=== PATIENT | female | born 1960 | race Caucasian/White ===

== ENCOUNTER 2020-06-16 08:07 | Day surgery (SDC) | payer MEDICAID ==
[~2020-06-16] VITALS: Ht 172.7 cm; Wt 69.8 kg
[2020-06-16 08:30] VITALS: BP 143/82
[2020-06-16] MEDS ORDERED: albumin 25% 100mL bottle x 1 IV PRN (08:30)
[2020-06-16] MEDS ORDERED: normal saline 1000ml 1,000 ML IV PRN (08:30)
[2020-06-16] MEDS ORDERED: FLO0.1T PO (08:32)
[2020-06-16] MEDS ORDERED: MIDO2.5T14 PO (08:32)
[2020-06-16] MEDS ORDERED: FLO0.4C PO (08:32)
[2020-06-16 08:45] VITALS: BP 134/82
[2020-06-16 09:00] VITALS: BP 114/71
[2020-06-16 09:15] VITALS: BP 139/46
== END 2020-06-16 09:30 | disposition home or self-care (01) ==
LOC: SSTAY O 08:07
PROVIDERS: ATTEND Radiology Vascular & Interventional Radiology
DX: K70.31 Alcoholic cirrhosis of liver with ascites (principal); F10.20 Alcohol dependence, uncomplicated; E87.1 Hypo-osmolality and hyponatremia; D75.89 Other specified diseases of blood and blood-forming organs; Z98.890 Other specified postprocedural states
CPT/HCPCS: 49083

== ENCOUNTER 2020-06-23 07:02 | Day surgery (SDC) | payer MEDICAID ==
[2020-06-23] VITALS (9 sets, daily range): BP systolic 107–137; BP diastolic 47–66
[~2020-06-23] VITALS: Ht 172.7 cm; Wt 66.7 kg
[~2020-06-23 07:02] MED LIST: FLO0.1T PO; FLO0.4C PO; MIDO2.5T14 PO
[2020-06-23] MEDS ORDERED: albumin 25% 100mL bottle x 1 IV PRN (07:20)
[2020-06-23] MEDS ORDERED: normal saline 1000ml 1,000 ML IV PRN (07:25)
== END 2020-06-23 10:50 | disposition home or self-care (01) ==
LOC: SSTAY O 07:02
PROVIDERS: ATTEND Radiology Vascular & Interventional Radiology
DX: K70.31 Alcoholic cirrhosis of liver with ascites (principal); Z98.890 Other specified postprocedural states; Z87.891 Personal history of nicotine dependence; Z72.89 Other problems related to lifestyle
CPT/HCPCS: 49083; P9047

== ENCOUNTER 2020-06-30 06:22 | Day surgery (SDC) | payer MEDICAID ==
[~2020-06-30] VITALS: Ht 172.7 cm; Wt 62.0 kg
[2020-06-30] VITALS (8 sets, daily range): BP systolic 92–117; BP diastolic 61–69
[2020-06-30] MEDS ORDERED: albumin 25% 100mL bottle x 1 IV PRN (06:45)
== END 2020-06-30 09:35 | disposition home or self-care (01) ==
LOC: SSTAY O 06:22
PROVIDERS: ATTEND Radiology Diagnostic Radiology
DX: K70.31 Alcoholic cirrhosis of liver with ascites (principal); E87.1 Hypo-osmolality and hyponatremia; D75.89 Other specified diseases of blood and blood-forming organs; I95.9 Hypotension, unspecified; Z87.891 Personal history of nicotine dependence; Z98.890 Other specified postprocedural states
CPT/HCPCS: 49083; P9047

== ENCOUNTER 2020-07-10 07:27 | Day surgery (SDC) | payer MEDICAID ==
[2020-07-10] VITALS (8 sets, daily range): BP systolic 91–109; BP diastolic 53–79
[~2020-07-10] VITALS: Ht 172.7 cm; Wt 58.4 kg
[2020-07-10] MEDS ORDERED: albumin 25% 100mL bottle x 1 IV PRN (07:50)
== END 2020-07-10 10:35 | disposition home or self-care (01) ==
LOC: SSTAY O 07:27
PROVIDERS: ATTEND Radiology Vascular & Interventional Radiology
DX: K70.31 Alcoholic cirrhosis of liver with ascites (principal); E87.1 Hypo-osmolality and hyponatremia; D75.89 Other specified diseases of blood and blood-forming organs; Z98.890 Other specified postprocedural states; Z87.891 Personal history of nicotine dependence; Z72.89 Other problems related to lifestyle
CPT/HCPCS: 49083; P9047

== ENCOUNTER → 2020-07-17 | Day surgery (SDC) | payer MEDICAID ==
[2020-07-17] VITALS (8 sets, daily range): BP systolic 91–118; BP diastolic 55–69
[~2020-07-17] VITALS: Ht 172.7 cm; Wt 57.9 kg
[~2020-07-17] MED LIST changes: +albumin 25% 100mL bottle x 1 IV PRN
== END | disposition home or self-care (01) ==
LOC: SSTAY O 07:49
PROVIDERS: ATTEND Radiology Vascular & Interventional Radiology
DX: K70.31 Alcoholic cirrhosis of liver with ascites (principal); E87.1 Hypo-osmolality and hyponatremia; D75.89 Other specified diseases of blood and blood-forming organs; Z98.890 Other specified postprocedural states; Z87.891 Personal history of nicotine dependence; Z72.89 Other problems related to lifestyle
CPT/HCPCS: 49083; P9047

== ENCOUNTER 2020-07-24 07:50 | Day surgery (SDC) | payer MEDICAID ==
[~2020-07-24] VITALS: Ht 172.7 cm; Wt 57.1 kg
[2020-07-24] VITALS (8 sets, daily range): BP systolic 80–106; BP diastolic 29–69
[~2020-07-24 07:50] MED LIST changes: -albumin 25% 100mL bottle x 1 IV PRN
[2020-07-24] MEDS ORDERED: albumin 25% 100mL bottle x 1 IV PRN (08:30)
== END 2020-07-24 11:05 | disposition home or self-care (01) ==
LOC: SSTAY O 07:50
PROVIDERS: ATTEND Radiology Diagnostic Radiology
DX: K70.31 Alcoholic cirrhosis of liver with ascites (principal); E87.1 Hypo-osmolality and hyponatremia; D75.89 Other specified diseases of blood and blood-forming organs; Z98.890 Other specified postprocedural states; Z87.891 Personal history of nicotine dependence; Z72.89 Other problems related to lifestyle; Z79.899 Other long term (current) drug therapy
CPT/HCPCS: 49083; P9047

== ENCOUNTER 2020-07-31 07:23 | Day surgery (SDC) | payer MEDICAID ==
[2020-07-31] VITALS (8 sets, daily range): BP systolic 87–165; BP diastolic 55–76
[~2020-07-31] VITALS: Ht 172.7 cm; Wt 57.0 kg
[2020-07-31] MEDS ORDERED: normal saline 1000ml 1,000 ML IV PRN (07:45)
[2020-07-31] MEDS ORDERED: albumin 25% 100mL bottle x 1 IV PRN (07:45)
== END 2020-07-31 10:40 | disposition home or self-care (01) ==
LOC: SSTAY O 07:23
PROVIDERS: ATTEND Radiology Vascular & Interventional Radiology
DX: K70.31 Alcoholic cirrhosis of liver with ascites (principal); Z79.899 Other long term (current) drug therapy
CPT/HCPCS: 49083; P9047

== ENCOUNTER 2020-08-07 07:30 | Day surgery (SDC) | payer MEDICAID ==
[~2020-08-07] VITALS: Ht 167.6 cm; Wt 57.9 kg
[2020-08-07 07:54] VITALS: BP 117/75
[2020-08-07] MEDS ORDERED: albumin 25% 100mL bottle x 1 IV PRN (07:55)
[2020-08-07 09:45] VITALS: BP 109/72
[2020-08-07 10:00] VITALS: BP 102/63
[2020-08-07 10:15] VITALS: BP 107/68
== END 2020-08-07 10:25 | disposition home or self-care (01) ==
LOC: SSTAY O 07:30
PROVIDERS: ATTEND Radiology Vascular & Interventional Radiology
DX: K70.31 Alcoholic cirrhosis of liver with ascites (principal); E87.1 Hypo-osmolality and hyponatremia; D75.89 Other specified diseases of blood and blood-forming organs; Z79.899 Other long term (current) drug therapy; Z87.891 Personal history of nicotine dependence; Z98.890 Other specified postprocedural states
CPT/HCPCS: 49083

== ENCOUNTER 2020-08-14 07:25 | Day surgery (SDC) | payer MEDICAID ==
[~2020-08-14] VITALS: Ht 172.7 cm; Wt 58.3 kg
[2020-08-14] MEDS ORDERED: albumin 25% 100mL bottle x 1 IV PRN (07:45)
[2020-08-14] MEDS ORDERED: normal saline 1000ml 1,000 ML IV PRN (07:45)
[2020-08-14 08:20] VITALS: BP 120/74
[2020-08-14 09:30] VITALS: BP_SYST 117; BP_SYST 120; BP_DIAS 51; BP_DIAS 74
[2020-08-14 09:52] VITALS: BP 95/46
[2020-08-14 10:11] VITALS: BP 97/62
[2020-08-14 10:41] VITALS: BP 100/64
== END 2020-08-14 11:10 | disposition home or self-care (01) ==
LOC: SSTAY O 07:25
PROVIDERS: ATTEND Radiology Vascular & Interventional Radiology
DX: K70.31 Alcoholic cirrhosis of liver with ascites (principal); E87.1 Hypo-osmolality and hyponatremia; I95.9 Hypotension, unspecified; D75.89 Other specified diseases of blood and blood-forming organs; Z87.891 Personal history of nicotine dependence; Z72.89 Other problems related to lifestyle; Z98.890 Other specified postprocedural states; Z79.899 Other long term (current) drug therapy
CPT/HCPCS: 49083; P9047

== ENCOUNTER 2020-08-21 07:14 | Day surgery (SDC) | payer MEDICAID ==
[~2020-08-21] VITALS: Ht 167.6 cm; Wt 58.5 kg
[2020-08-21] MEDS ORDERED: albumin 25% 100mL bottle x 1 IV PRN (07:45)
[2020-08-21 08:09] VITALS: BP 107/79
[2020-08-21 09:16] VITALS: BP 104/68
[2020-08-21 09:30] VITALS: BP 125/76
[2020-08-21 09:45] VITALS: BP 109/65
[2020-08-21 10:00] VITALS: BP 101/44
== END 2020-08-21 10:45 | disposition home or self-care (01) ==
LOC: SSTAY O 07:14
PROVIDERS: ATTEND Radiology Diagnostic Radiology
DX: K70.31 Alcoholic cirrhosis of liver with ascites (principal); E87.1 Hypo-osmolality and hyponatremia; D75.89 Other specified diseases of blood and blood-forming organs; Z98.890 Other specified postprocedural states; Z79.899 Other long term (current) drug therapy
CPT/HCPCS: 49083; P9047

== ENCOUNTER 2020-08-28 07:23 | Day surgery (SDC) | payer MEDICAID ==
[~2020-08-28] VITALS: Ht 172.7 cm; Wt 58.1 kg
[2020-08-28 07:37] VITALS: BP 129/76
[2020-08-28] MEDS ORDERED: albumin 25% 100mL bottle x 1 IV PRN (07:50)
[2020-08-28 09:30] VITALS: BP_SYST 112; BP_SYST 115; BP_DIAS 67; BP_DIAS 74
[2020-08-28 09:45] VITALS: BP 109/73
[2020-08-28 10:00] VITALS: BP 104/67
[2020-08-28 10:15] VITALS: BP 109/67
== END 2020-08-28 10:30 | disposition home or self-care (01) ==
LOC: SSTAY O 07:23
PROVIDERS: ATTEND Radiology Vascular & Interventional Radiology
DX: K70.31 Alcoholic cirrhosis of liver with ascites (principal); E78.1 Pure hyperglyceridemia; D75.89 Other specified diseases of blood and blood-forming organs; Z98.890 Other specified postprocedural states; Z87.891 Personal history of nicotine dependence; Z79.899 Other long term (current) drug therapy
CPT/HCPCS: 49083

== ENCOUNTER 2020-09-04 07:39 | Day surgery (SDC) | payer MEDICAID ==
[~2020-09-04] VITALS: Ht 172.7 cm; Wt 61.3 kg
[2020-09-04] VITALS (8 sets, daily range): BP systolic 96–121; BP diastolic 57–78
[2020-09-04] MEDS ORDERED: albumin 25% 100mL bottle x 1 IV PRN (08:10)
== END 2020-09-04 11:25 | disposition home or self-care (01) ==
LOC: SSTAY O 07:39
PROVIDERS: ATTEND Radiology Vascular & Interventional Radiology
DX: K70.31 Alcoholic cirrhosis of liver with ascites (principal); E87.1 Hypo-osmolality and hyponatremia; D75.89 Other specified diseases of blood and blood-forming organs; Z98.890 Other specified postprocedural states; Z87.891 Personal history of nicotine dependence; Z72.89 Other problems related to lifestyle
CPT/HCPCS: 49083; P9047

== ENCOUNTER 2020-09-11 07:29 | Day surgery (SDC) | payer MEDICAID ==
[~2020-09-11] VITALS: Ht 172.7 cm; Wt 61.6 kg
[2020-09-11] VITALS (9 sets, daily range): BP systolic 102–129; BP diastolic 53–92
[2020-09-11] MEDS ORDERED: albumin 25% 100mL bottle x 1 IV PRN (07:55)
[2020-09-11] MEDS ORDERED: LISI10TA4 PO (09:52)
[2020-09-11] MEDS ORDERED: ATOR20TA PO (09:55)
== END 2020-09-11 10:05 | disposition home or self-care (01) ==
LOC: SSTAY O 07:29
PROVIDERS: ATTEND Radiology Diagnostic Radiology
DX: K70.31 Alcoholic cirrhosis of liver with ascites (principal); F10.20 Alcohol dependence, uncomplicated; E87.1 Hypo-osmolality and hyponatremia; D75.89 Other specified diseases of blood and blood-forming organs; Z98.890 Other specified postprocedural states; Z87.891 Personal history of nicotine dependence; Z79.899 Other long term (current) drug therapy
CPT/HCPCS: 49083; P9047

== ENCOUNTER 2020-09-20 07:50 | Day surgery (SDC) | payer MEDICAID ==
[~2020-09-20] VITALS: Ht 172.7 cm; Wt 63.0 kg
[2020-09-20] VITALS (7 sets, daily range): BP systolic 98–126; BP diastolic 63–86
[2020-09-20] MEDS ORDERED: albumin 25% 100mL bottle x 1 IV PRN (08:15)
== END 2020-09-20 11:30 | disposition home or self-care (01) ==
LOC: SSTAY O 07:50
PROVIDERS: ATTEND Radiology Vascular & Interventional Radiology
DX: K70.31 Alcoholic cirrhosis of liver with ascites (principal); E87.1 Hypo-osmolality and hyponatremia; D75.89 Other specified diseases of blood and blood-forming organs; Z98.890 Other specified postprocedural states; Z87.891 Personal history of nicotine dependence
CPT/HCPCS: 49083; P9047

== ENCOUNTER 2020-09-29 07:28 | Day surgery (SDC) | payer MEDICAID ==
[~2020-09-29] VITALS: Ht 172.7 cm; Wt 61.4 kg
[2020-09-29] VITALS (10 sets, daily range): BP systolic 103–139; BP diastolic 49–93
[2020-09-29] MEDS ORDERED: POTA20TA19 PO (07:45)
[2020-09-29] MEDS ORDERED: albumin 25% 100mL bottle x 1 IV PRN (07:50)
== END 2020-09-29 11:21 | disposition home or self-care (01) ==
LOC: SSTAY O 07:28
PROVIDERS: ATTEND Radiology Vascular & Interventional Radiology
DX: K70.31 Alcoholic cirrhosis of liver with ascites (principal); E87.1 Hypo-osmolality and hyponatremia; D75.89 Other specified diseases of blood and blood-forming organs; Z98.890 Other specified postprocedural states; Z87.891 Personal history of nicotine dependence; Z72.89 Other problems related to lifestyle
CPT/HCPCS: 49083; P9047

== ENCOUNTER 2020-10-06 06:27 | Day surgery (SDC) | payer MEDICAID ==
[~2020-10-06] VITALS: Ht 172.7 cm; Wt 59.7 kg
[2020-10-06] VITALS (8 sets, daily range): BP systolic 107–126; BP diastolic 60–95
[~2020-10-06 06:27] MED LIST changes: +POTA20TA19 PO
[2020-10-06] MEDS ORDERED: albumin 25% 100mL bottle x 1 IV PRN (06:55)
== END 2020-10-06 10:15 | disposition home or self-care (01) ==
LOC: SSTAY O 06:27
PROVIDERS: ATTEND Radiology Diagnostic Radiology
DX: K70.31 Alcoholic cirrhosis of liver with ascites (principal); E87.1 Hypo-osmolality and hyponatremia; D75.89 Other specified diseases of blood and blood-forming organs; Z98.890 Other specified postprocedural states; Z87.891 Personal history of nicotine dependence; Z72.89 Other problems related to lifestyle; Z79.899 Other long term (current) drug therapy
CPT/HCPCS: 49083; P9047

== ENCOUNTER 2020-10-16 07:26 | Day surgery (SDC) | payer MEDICAID ==
[~2020-10-16] VITALS: Ht 172.7 cm; Wt 59.5 kg
[2020-10-16] MEDS ORDERED: normal saline 1000ml 1,000 ML IV PRN (07:45)
[2020-10-16] MEDS ORDERED: albumin 25% 100mL bottle x 1 IV PRN (07:45)
[2020-10-16 07:53] VITALS: BP 137/73
[2020-10-16 08:15] VITALS: BP 125/78
[2020-10-16 08:29] VITALS: BP 121/60
[2020-10-16 08:45] VITALS: BP 108/78
[2020-10-16 08:50] VITALS: BP 115/74
== END 2020-10-16 09:00 | disposition home or self-care (01) ==
LOC: SSTAY O 07:26
PROVIDERS: ATTEND Radiology Diagnostic Radiology
DX: K70.31 Alcoholic cirrhosis of liver with ascites (principal); Z87.891 Personal history of nicotine dependence; Z79.899 Other long term (current) drug therapy
CPT/HCPCS: 49083

== ENCOUNTER 2020-10-30 06:50 | Day surgery (SDC) | payer MEDICAID ==
[~2020-10-30] VITALS: Ht 172.7 cm; Wt 61.8 kg
[~2020-10-30 06:50] MED LIST changes: -POTA20TA19 PO
[2020-10-30] MEDS ORDERED: albumin 25% 100mL bottle x 1 IV PRN (07:15)
[2020-10-30 07:30] VITALS: BP 144/91
[2020-10-30 08:24] VITALS: BP 150/78
[2020-10-30 08:34] VITALS: BP 121/89
[2020-10-30 08:50] VITALS: BP 136/83
== END 2020-10-30 08:55 | disposition home or self-care (01) ==
LOC: SSTAY O 06:50
PROVIDERS: ATTEND Radiology Diagnostic Radiology
DX: K70.31 Alcoholic cirrhosis of liver with ascites (principal); E87.1 Hypo-osmolality and hyponatremia; D75.89 Other specified diseases of blood and blood-forming organs; Z87.891 Personal history of nicotine dependence; Z98.890 Other specified postprocedural states; Z72.89 Other problems related to lifestyle; Z79.899 Other long term (current) drug therapy
CPT/HCPCS: 49083

== ENCOUNTER 2020-11-20 06:53 | Day surgery (SDC) | payer MEDICAID ==
[~2020-11-20] VITALS: Ht 172.7 cm; Wt 60.0 kg
[2020-11-20 07:11] VITALS: BP 151/69
[2020-11-20] MEDS ORDERED: albumin 25% 100mL bottle x 1 IV PRN (07:25)
[2020-11-20 09:10] VITALS: BP_SYST 129; BP_SYST 151; BP_DIAS 69; BP_DIAS 76
[2020-11-20 09:30] VITALS: BP 131/66
== END 2020-11-20 09:40 | disposition home or self-care (01) ==
LOC: SSTAY O 06:53
PROVIDERS: ATTEND Radiology Vascular & Interventional Radiology
DX: K70.31 Alcoholic cirrhosis of liver with ascites (principal); E87.1 Hypo-osmolality and hyponatremia; I95.9 Hypotension, unspecified; D75.89 Other specified diseases of blood and blood-forming organs; Z87.891 Personal history of nicotine dependence; Z72.89 Other problems related to lifestyle; Z79.899 Other long term (current) drug therapy
CPT/HCPCS: 49083

== ENCOUNTER 2020-12-29 06:03 | Day surgery (SDC) | payer MEDICAID ==
[~2020-12-29] VITALS: Ht 172.7 cm; Wt 62.3 kg
[2020-12-29] MEDS ORDERED: albumin 25% 100mL bottle x 1 IV PRN (06:25)
[2020-12-29 06:52] VITALS: BP 137/71
== END 2020-12-29 08:35 | disposition home or self-care (01) ==
LOC: SSTAY O 06:03
PROVIDERS: ATTEND Radiology Vascular & Interventional Radiology
DX: K70.31 Alcoholic cirrhosis of liver with ascites (principal); Z53.8 Procedure and treatment not carried out for other reasons; R14.0 Abdominal distension (gaseous); E87.1 Hypo-osmolality and hyponatremia; D75.89 Other specified diseases of blood and blood-forming organs; Z98.890 Other specified postprocedural states; Z87.891 Personal history of nicotine dependence; F10.20 Alcohol dependence, uncomplicated
CPT/HCPCS: 76705

== ENCOUNTER → 2024-10-18 | Outpatient (CLI) | payer MEDICAID ==
[~2024-10-18] MED LIST changes: -FLO0.1T PO; -FLO0.4C PO; +MIDO2.5T PO; -MIDO2.5T14 PO
== END | disposition home or self-care (01) ==
LOC: RAD 09:54
PROVIDERS: ATTEND Physician Assistant
DX: K74.00 Hepatic fibrosis, unspecified (principal); F17.200 Nicotine dependence, unspecified, uncomplicated
CPT/HCPCS: 76700